=== PATIENT | female | born 1995 | race African-American/Black ===

== ENCOUNTER 2021-04-26 00:02 | Emergency (ER) | payer SELFPAY ==
[2021-04-26] MEDS ORDERED: Acetaminophen/Butalbital/Caffeine 325-50-40 MG Tab PO ONE (00:41)
--- NOTE | 2021-04-26 00:47 | EDM.PDOC ---
ED HPI GENERAL MEDICAL PROBLEM - General Chief Complaint: Headache Stated Complaint: HEADACHE Time Seen by Provider: 04/26/21 00:14 Source of Information: Reports: Patient History Limitations: Reports: No Limitations - History of Present Illness INITIAL COMMENTS - FREE TEXT/NARRATIVE: Ms. Mancini is a very pleasant 25-year-old woman who now presents the ED stating that she developed a pounding pain felt behind her left eye this past 04/23/2021, which has progressively gotten worse. No visual changes, such as flashing lights, blurry vision, or wavy lines. No nausea. Possible, although unlikely, photophobia, and no phonophobia. No neurologic symptoms, such as tingling, numbness, or weakness. The patient took Tylenol PM, without relief of her symptoms. The patient states that she has had similar symptoms over the past year, although has not previously sought medical evaluation for them. She is unable to say how frequently they occur. At triage, the patient was found to be hemodynamically stable, afebrile, saturating 100% on room air. She appears to be comfortable, in no acute distress. Other than the headache, the patient denies having a recent fever, chills, sore throat, ear pain, nasal or sinus congestion, cough, dyspnea, chest pain, palpitations, nausea, vomiting, constipation, diarrhea, abdominal pain, urinary symptoms, recent weight gain or weight loss, recent bloody bowel movements or black bowel movements, recent joint aches, or rashes. The patient does not have a PCP. She has not received a COVID vaccination, nor an influenza vaccination this season. Headache Pain Score (Numeric/FACES): 5 - Related Data Allergies Allergy/AdvReac Type Severity Reaction Status Date / Time No Known Allergies Allergy Verified 04/26/21 00:17 Home Meds: Home Meds . [No Known Home Meds] 04/26/21 [History] Past Medical History - Past Surgical History Female Surgical History: Reports: Section (x 1) Social & Family History - Tobacco Use Tobacco Use Status *Q: Never Tobacco User Second Hand Smoke Exposure: No - Caffeine Use Caffeine Use: Reports: Soda - Alcohol Use Alcohol Use History: No - Recreational Drug Use Recreational Drug Use: No - Living Situation & Occupation Living situation: Reports: Single, with Significant Other (Boyfriend), with Family (Son) Occupation: Employed ([employer]) ED ROS GENERAL - Review of Systems Review Of Systems: Comprehensive ROS is negative, except as noted in HPI. - Physical Exam Exam: See Below Exam Limited By: No Limitations General Appearance: Alert, WD/WN, No Apparent Distress Eye Exam: Bilateral Eye: EOMI, Normal Inspection, PERRL Ears: Normal External Exam, Normal Canal, Hearing Grossly Normal, Normal TMs Nose: Normal Inspection, No Blood, Other (Left nasal mucosal edema) Throat/Mouth: Normal Inspection, Normal Lips, Normal Teeth, Normal Gums, Normal Oropharynx, Normal Voice, No Airway Compromise Head Exam: Atraumatic, Normocephalic Neck: Normal Inspection, Supple, Non-Tender, Full Range of Motion. No: Lymphadenopathy (L), Lymphadenopathy (R) Respiratory/Chest: No Respiratory Distress, Lungs Clear, Normal Breath Sounds, No Accessory Muscle Use Cardiovascular: Normal Peripheral Pulses, Regular Rate, Rhythm, No Edema, No Gallop, No JVD, No Murmur, No Rub GI/Abdominal: Normal Bowel Sounds, Soft, Non-Tender, No Organomegaly, No Distention, No Abnormal Bruit, No Mass Neuro Exam (Abbreviated): Alert, Oriented, CN II-XII Intact, Normal Cognition, No Motor/Sensory Deficits Back Exam: Normal Inspection, Full Range of Motion, NT Extremities: Normal Inspection, Normal Range of Motion, No Pedal Edema, Normal Capillary Refill Psychiatric: Normal Affect Skin Exam: Warm, Dry, Intact, Normal Color, No Rash Course - Vital Signs Last Recorded V/S: Last Vital Signs Temp 36.2 C 04/26/21 00:15 Pulse 76 04/26/21 00:15 Resp 20 04/26/21 00:15 BP 111/75 04/26/21 00:15 Pulse Ox 100 04/26/21 00:15 - Orders/Labs/Meds Labs: Laboratory Tests 04/26/21 Range/Units 00:04 Influenza Type A RNA Negative (NEGATIVE) Influenza Type B RNA Negative (NEGATIVE) SARS-CoV-2 RNA (BASHIR) Negative (NEGATIVE) Meds: Medications Discontinued Medications Generic Name Dose Route Start Last Admin Trade Name Freq PRN Reason Stop Dose Admin Acetaminophen/Butalbital/Caffeine 1 tab 04/26/21 00:41 04/26/21 00:53 Acetaminophen/Butalbital/Caffeine 325-50-40 Mg Tab PO 04/26/21 00:42 1 tab ONETIME ONE Administration - Re-Assessments/Exams Free Text/Narrative Re-Assessment/Exam: 04/26/21 00:42 The patient's presentation is most consistent with a sinus pressure headache, less likely a tension-type headache, and not consistent with a migraine. Because her neurologic exam is completely normal, an emergency imaging study of her head is not indicated at this time. For today's purposes, the patient will be treated with a single dose of Fioricet, and, going forward, I recommended that she purchase and start using an [id number] nasal steroid sprays, such as mometasone or fluticasone. I will also refer her to the clinic to establish a PCP. Departure - Departure Time of Disposition: 00:43 Disposition: Home, Self-Care 01 Condition: Good Clinical Impression: Sinus headache - Discharge Information *PRESCRIPTION DRUG MONITORING PROGRAM REVIEWED*: Not Applicable *COPY OF PRESCRIPTION DRUG MONITORING REPORT IN PATIENT JESSIKA: Not Applicable Instructions: Sinus Headache, [id number] Referrals: PCP,None [Primary Care Provider] - Sara Eckert NP [Nurse Practitioner] - Forms: ED Department Discharge Additional Instructions: You were seen in the emergency room for a recurrent headache felt behind your left eye. Based on your history and physical examination, the cause of your headache is most likely due to sinus pressure. You have been treated with a single dose of the anti-headache medication Fioricet. Hopefully, this will help with your headache. Stay adequately hydrated and get plenty of rest in a dark, quiet place tonight. As discussed, we recommend that you start taking a nasal steroid spray, either mometasone (Nasonex) or fluticasone (Flonase). Both are available [id number]. Use as directed on the label. Please follow-up with Sara Eckert NP, or one of the other providers in the clinic, to establish a PCP. If any other problems, please do not hesitate to return to the ER.
[2021-04-26 00:53] LABS: CORONAVIRUS COVID-19 NAA NEGATIVE (NEGATIVE)
== END 2021-04-26 00:56 | disposition home or self-care (01) ==
LOC: JD.ED 00:02
DX: R51.9 Headache, unspecified (principal); Z20.822 Contact with and (suspected) exposure to COVID-19
CPT/HCPCS: 0240U; 99283; A9270

== ENCOUNTER 2021-04-30 09:50 | Emergency (ER) | payer SELFPAY ==
[2021-04-30 11:16] LABS: CORONAVIRUS COVID-19 NAA NEGATIVE (NEGATIVE)
--- NOTE | 2021-04-30 11:32 | EDM.PDOC ---
ED HPI GENERAL MEDICAL PROBLEM - General Chief Complaint: Respiratory Problem Stated Complaint: EAR AND THROAT PAIN Time Seen by Provider: 04/30/21 09:57 Source of Information: Reports: Patient History Limitations: Reports: No Limitations - History of Present Illness INITIAL COMMENTS - FREE TEXT/NARRATIVE: 25-year-old female presents the emergency department with a 2-day history of headache, earache, sore throat, cough and congestion. Patient states that she was recently seen in this emergency department few days ago for complaints of sinus congestion however at that time had no other symptoms. She denies any fever, chills, nausea, vomiting or diarrhea. She denies any decreased appetite or urinary symptoms. She states she is otherwise healthy and does not take any prescription medications. She does not have a primary care provider. She does not smoke. 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) ED ROS GENERAL - Review of Systems Review Of Systems: Comprehensive ROS is negative, except as noted in HPI. ED EXAM, GENERAL - Physical Exam Exam: See Below Exam Limited By: No Limitations General Appearance: Alert, WD/WN, Mild Distress Ears: Normal External Exam, Hearing Grossly Normal Nose: Normal Inspection Throat/Mouth: Normal Inspection, Normal Lips, Normal Voice, No Airway Compromise Head: Atraumatic Neck: Normal Inspection, Supple Respiratory/Chest: No Respiratory Distress, Lungs Clear, Normal Breath Sounds, No Accessory Muscle Use, Chest Non-Tender Cardiovascular: Normal Peripheral Pulses, Regular Rate, Rhythm, No Edema, No Murmur Peripheral Pulses: 2+: Radial (L), Radial (R) GI/Abdominal: Normal Bowel Sounds, Soft, Non-Tender, No Distention (Female) Exam: Deferred Rectal (Female) Exam: Deferred Back Exam: Normal Inspection Extremities: Normal Inspection Neurological: Alert, Oriented, Normal Cognition Psychiatric: Normal Affect, Normal Mood Skin Exam: Warm, Dry, Intact, Normal Color, No Rash Lymphatic: No Adenopathy Course - Vital Signs Text/Narrative:: As stated above, patient presents with 2-day history of flulike symptoms. States she has been taking Aleve at home for headache discomfort however it has only helped a little bit. Has otherwise not been trying any other [id number] treatments. Physical exam is unremarkable. Patient is hemodynamically stable. Will obtain Covid and influenza testing. Last Recorded V/S: Last Vital Signs Temp 97.8 F 04/30/21 10:16 Pulse 87 04/30/21 10:16 Resp 18 04/30/21 10:16 BP 97/65 04/30/21 10:16 Pulse Ox 97 04/30/21 10:16 - Orders/Labs/Meds Labs: Laboratory Tests 04/30/21 Range/Units 10:25 Influenza Type A RNA Positive H (NEGATIVE) Influenza Type B RNA Negative (NEGATIVE) SARS-CoV-2 RNA (BASHIR) Negative (NEGATIVE) - Re-Assessments/Exams Free Text/Narrative Re-Assessment/Exam: 04/30/21 11:33 Patient did test positive for influenza A. Influenza B and Covid testing is negative. 04/30/21 11:53 Patient will be discharged home with a prescription for Tamiflu 75 mg to be taken twice daily. She has been instructed to quarantine for 10 days time. Departure - Departure Time of Disposition: 11:53 Disposition: Home, Self-Care 01 Condition: Good Clinical Impression: Influenza - Discharge Information Prescriptions: Oseltamivir [Tamiflu] 75 mg PO BID #10 cap Instructions: Influenza, Adult, [id number] Referrals: PCP,None [Primary Care Provider] - Forms: ED Department Discharge, ED Return to Work/School Form Additional Instructions: You were seen in the emergency department today with complaints of flulike symptoms started approximately 2 days ago. You were tested for Covid and influenza. Influenza A test did come back as positive, influenza B and Covid tests are negative. Treatment for this is get plenty of rest and drink plenty of fluids. You may take Tylenol 650 mg every 4 hours alternating with ibuprofen 600 mg for the next couple of days until you start to feel better. I have sent prescription for a medication called Tamiflu to your pharmacy. This medication has been shown to decrease the severity and length of time you have the symptoms of influenza. You will need to take 1 tab twice daily until gone. You will need to quarantine for total of 10 days time from the onset of your symptoms as influenza is extremely contagious. Return to the ER with any worsening symptoms or problems. Sepsis Event Note (ED) - Evaluation Sepsis Screening Result: No Definite Risk - Focused Exam Vital Signs: Vital Signs Temp Pulse Resp BP Pulse Ox 04/30/21 10:16 97.8 F 87 18 97/65 97
== END 2021-04-30 12:10 | disposition home or self-care (01) ==
LOC: JD.ED 09:50
DX: J11.1 Influenza due to unidentified influenza virus with other respiratory manifestations (principal); Z20.822 Contact with and (suspected) exposure to COVID-19
CPT/HCPCS: 0240U; 99283

== ENCOUNTER 2021-07-05 08:51 | Emergency (ER) | payer SELFPAY ==
[2021-07-05] MEDS ORDERED: Sodium Chloride 0.9% 10 ML Syringe FLUSH PRN (09:09)
[2021-07-05] MEDS ORDERED: diphenhydrAMINE 50 MG/ML SDV IVPUSH ONE (09:10)
[2021-07-05] MEDS ORDERED: Ketorolac 30 MG/ML SDV IVPUSH ONE (09:11)
[2021-07-05] MEDS ORDERED: Metoclopramide 10 MG/2 ML SDV IVPUSH ONE (09:11)
== END 2021-07-05 11:53 | disposition home or self-care (01) ==
LOC: JD.ED 08:51
DX: G43.909 Migraine, unspecified, not intractable, without status migrainosus (principal)
CPT/HCPCS: 36415; 70450; 80053; 84703; 85025; 96374; 96375; 99284; J1200; J1885; J2765

== ENCOUNTER 2021-08-31 10:14 | Emergency (ER) | payer SELFPAY ==
[2021-08-31] MEDS ORDERED: Ketorolac 15 MG/ML SDV IM ONE (10:43)
== END 2021-08-31 11:00 | disposition home or self-care (01) ==
LOC: JD.ED 10:14
DX: J06.9 Acute upper respiratory infection, unspecified (principal); Z20.822 Contact with and (suspected) exposure to COVID-19
CPT/HCPCS: 87635; 96372; 99284; J1885; U0002

== ENCOUNTER 2021-12-09 18:03 | Emergency (ER) | payer SELFPAY | END 2021-12-09 19:00 | LOC: JD.ED 18:03 | DX: Z53.21 Procedure and treatment not carried out due to patient leaving prior to being seen by health care provider (principal) ==

== ENCOUNTER 2022-04-05 09:50 | Emergency (ER) | payer SELFPAY ==
[2022-04-05] MEDS ORDERED: Sodium Chloride 0.9% 10 ML Syringe FLUSH PRN (11:04)
[2022-04-05 11:47] LABS: ESTIMATED GFR 124 mL/min (>60)
[2022-04-05 11:56] LABS: CORONAVIRUS COVID-19 NAA NEGATIVE (NEGATIVE)
== END 2022-04-05 12:45 | disposition home or self-care (01) ==
LOC: JD.ED 09:50
DX: N94.6 Dysmenorrhea, unspecified (principal); R31.21 Asymptomatic microscopic hematuria; Z20.822 Contact with and (suspected) exposure to COVID-19
CPT/HCPCS: 0240U; 36415; 80053; 81001; 83690; 83735; 84702; 85025; 86140; 99284; J3490